=== PATIENT | female | born 1995 | race Two or more races ===

== ENCOUNTER 2017-03-12 04:21 | Emergency (ER) | payer OTHER ==
[2017-03-12] MEDS ORDERED: Sodium Chloride 0.9% 1,000 ML PRIMARY IV ONE (04:46)
[2017-03-12] MEDS ORDERED: NORMAL SALINE 10 ML SYRINGE FLUSH IVP PRN (04:46)
[2017-03-12 04:47] VITALS: TEMP 96
[2017-03-12] MEDS ORDERED: LORazepam 2 MG/1 ML VIAL IVP ONE (04:47)
[2017-03-12 05:02] LABS: VENOUS PH 7.51 (7.32-7.42)
[2017-03-12 05:07] LABS: BASOPHILS # (AUTO) 0.05 10*3/UL; BASOPHILS % (AUTO) 0.7 % (0-1); EOSINOPHILS # (AUTO) 0.17 10*3/UL; EOSINOPHILS % (AUTO) 2.4 % (0-8); HEMATOCRIT 36.6 % (37.0-47.0); HEMOGLOBIN 12.1 g/dL (12.0-16.0); LYMPHOCYTES # (AUTO) 2.28 10*3/uL; MEAN CORPUSCULAR HEMOGLOBIN 24.3 PG (27-31); MEAN CORPUSCULAR HGB CONC 33.1 g/dL (33-37); MEAN CORPUSCULAR VOLUME 73.6 FL (81-99); MEAN PLATELET VOLUME 10.8 FL (7.4-12.2); MONOCYTES # (AUTO) 0.54 10*3/UL (0.3-0.8); MONOCYTES % (AUTO) 7.7 % (5-15); NEUTROPHILS # (AUTO) 3.93 10*3/UL; NEUTROPHILS % (AUTO) 56.3 % (50-80); RED BLOOD COUNT 4.97 10^6/uL (4.20-5.40)
[2017-03-12 05:09] LABS: PLATELET MORPHOLOGY COMMENT NORMAL MORPHOLOGY (NORM); RBC MORPHOLOGY COMMENT NORMAL MORPHOLOGY (NORM); WBC MORPHOLOGY COMMENT NORMAL MORPHOLOGY (NORM)
[2017-03-12 05:15] LABS: BLOOD UREA NITROGEN 9 mg/dL (7-22); BUN/CREATININE RATIO 12.85 (6-20); EST GLOMERULAR FILTRATION > 60 (>60 ml/min/1.73m(2)); SERUM ALBUMIN 4.4 g/dL (3.5-4.8)
[2017-03-12 06:09] VITALS: RESP 16
--- NOTE | 2017-03-12 08:39 | PDOC ---
General Adult HPI - General Chief Complaint: General Medical Stated Complaint: arms,hands, face, tingling Date Seen by Provider: 03/12/17 Time Seen by Provider: 04:35 Source: POSITIVE: Patient, Other (Patient's boyfriend) Exam Limitations: POSITIVE: No limitations Nurse's Notes Reviewed & Considered: Yes - History of Present Illness Initial Comment: The patient is a 22-year-old female. She states that earlier this morning she developed numbness to her hands and face, she also has some numbness to her feet. Patient states she has a history of anxiety disorder and panic attacks. Patient developed her symptoms as she was trying to go to sleep. She denies any pain. No fevers or chills. No rashes or skin changes. No GI or symptoms. No focal neurologic symptoms. Have you received a tetanus shot in the past 10 years?: Unknown Body Location Affected: REPORTS: Upper Extremity (L), Upper Extremity (R), Lower Extremity (L), Lower Extremity (R), Face, Other (Numbness to hands feet and face) Timing: REPORTS: Gradual, Getting Worse Duration: 1-3 hours Severity: Moderate Quality: REPORTS: Other (No pain anywhere) Context: REPORTS: Other (Onset while trying to fall asleep) Modifying Factors: improves with: Nothing Similar Symptoms Previously: Yes Recent Care Received: REPORTS: Denies Any Prior Injuries Related to Current Complaint?: No - Patient Home Medications Home Medications: Home Medications NK [No Home Medications Reported] 03/12/17 - Patient Allergies Allergies/Adverse Reactions: Allergies Allergy/AdvReac Type Severity Reaction Status Date / Time potato AdvReac Intermediate HIVES Verified 03/12/17 04:33 tomato AdvReac Intermediate HIVES Verified 03/12/17 04:33 Past Medical History - heen HEENT History: Denies History Cardiovascular History: Other (please comment) Additional Cardiovasular History: TX FOR PERICARDITIS IN 2011 Respiratory History: Denies History Gastrointestinal History: Denies History Genitourinary History: Denies History Endocrine History: Denies History Musculoskeletal History: Denies History Prosthesis or Implant: No Neurological History: Denies History Blood Disorders: Denies History Psychiatric History: Other (please comment) Additional Psychiatric History: PT CLAIMS HAS HAD FREQ. PANIC ATTACKS X 2 YEARS History of Sexually Transmitted Diseases: No Female Reproductive History: Denies History LMP: 03/04/17 Obstetrical History: Denies History Cancer History: Denies History In Past Year Been Physically Harmed or Verbally Threatened: No History of MDRO: No History of Other Communicable Diseases: No Tobacco Use: Never Smoker Alcohol Use: None Substance Use Type: None Previous Surgical History: No Significant Family History: No pertinent family hx Past Medical History Reviewed: Reviewed - No Changes ROS - Limitations ROS Limitations: No Limitations Constitution: REPORTS: Denies Symptoms Cardiovascular: REPORTS: Denies Cardiac Symptoms Respiratory: REPORTS: Other (Sensation of breathlessness. Patient hyperventilating.) Neurological: REPORTS: Denies Neuro Symptoms Gastrointestinal: REPORTS: Denies GI Symptoms Endocrine: REPORTS: Denies Symptoms Musculoskeletal: REPORTS: Denies MS Symptoms Genitourinary: REPORTS: Denies Symptoms Eyes: REPORTS: Denies Symptoms ENT: REPORTS: Denies Symptoms Skin: REPORTS: Denies Skin Symptoms Lympathic: REPORTS: Denies Lympathic Symptoms Immunologic: POSITIVE: Denies Symptoms Psychiatric: POSITIVE: Anxiety General Adult Exam - General Appearance General Appearance: POSITIVE: Alert, Cooperative, No Acute Distress, No Evidence of Trauma, Anxious - HEENT HEENT: POSITIVE: Head Inspection Nml, Eyes Inspection Nml, Ears Inspection Nml, Nose Inspection Nml, Oral/Dental Inspect. Nml, Pharynx Inspect. Nml, PERRL, EOMI - Pupils Pupil Size: 3 mm: Bilateral (PERRLA) - Neck Neck: POSITIVE: Normal Inspection, Thyroid Normal - Respiratory Respiratory: POSITIVE: No Respiratory Distress, Breath Sounds Normal, Chest Non- Tender, Other (Hyperventilating) - Cardiovascular Cardiovascular: POSITIVE: Regular Rate & Rhythm, No Murmur, No Gallop, PMI Normal Peripheral Pulses: Radial (R): 2+, Radial (L): 2+ - Abdomen Abdomen: Soft: (All Quadrants), Normal Bowel Sounds: (All Quadrants), Denies Tenderness: (All Quadrants), No Splenomegaly: (All Quadrants), No Hepatomegaly: (All Quadrants), No Guarding: (All Quadrants), No Rebound: (All Quadrants), No Palpable Pulse: (All Quadrants), No Palpabale Mass: (All Quadrants), No Distention: (All Quadrants), No Rigidity: (All Quadrants) - Back Back: POSITIVE: Normal Inspection - Skin Skin: POSITIVE: Normal Color, Warm, Dry, No Rash - Extremities Extremity: Non-Tender: (All Extremities), Normal ROM: (All Extremities), Normal Inspection: (All Extremities) - Neurological / Psychological Neurological: POSITIVE: Oriented X3, records management specialist Normal As Tested, Motor Normal, Sensation Normal. NEGATIVE: Affect Apporpriate (Anxious) General Adult Progress - Results Reviewed by me Lab Results Reviewed: Yes (VBG shows respiratory alkalosis) Lab Results:: Laboratory Results 03/12/17 03/12/17 Range/Units 04:50 04:53 WBC 6.99 (4.8-10.8) 10^3/uL RBC 4.97 (4.20-5.40) 10^6/uL Hgb 12.1 (12.0-16.0) g/dL Hct 36.6 L (37.0-47.0) % MCV 73.6 L (81-99) FL MCH 24.3 L (27-31) PG MCHC 33.1 (33-37) g/dL RDW Std Deviation 41.1 (39-50) fL RDW Coeff of Last 15.5 H (11.5-14.5) % Plt Count 276 (140-350) 10*3/uL MPV 10.8 (7.4-12.2) FL Immature Gran % (Auto) 0.3 (0-5) % Neut % (Auto) 56.3 (50-80) % Lymph % (Auto) 32.6 (10-50) % [place] % (Auto) 7.7 (5-15) % Eos % (Auto) 2.4 (0-8) % Baso % (Auto) 0.7 (0-1) % Immature Gran # (Auto) 0.02 10*3/UL Neut # (Auto) 3.93 10*3/UL Lymph # (Auto) 2.28 10*3/uL [place] # (Auto) 0.54 (0.3-0.8) 10*3/UL Eos # (Auto) 0.17 10*3/UL Baso # (Auto) 0.05 10*3/UL WBC Morphology Comment Normal morphology (NORM) Plt Morphology Comment Normal morphology (NORM) RBC Morph Comment Normal morphology (NORM) VBG pH 7.51 H (7.32-7.42) VBG pCO2 26 L (45-55) mmHg VBG HCO3 20 L (22-26) mmol/L VBG Base Excess -3 L (-2-2) MMOL/L Sodium 139 (135-145) meq/L Potassium 3.0 L (3.8-5.2) meq/L Chloride 106 (98-112) meq/L Carbon Dioxide 21 L (23-33) meq/L Anion Gap 12 (5-20) BUN 9 (7-22) mg/dL Creatinine 0.7 (0.50-1.20) mg/dL Estimated GFR > 60 (>60 ml/min/1.73m(2)) BUN/Creatinine Ratio 12.85 (6-20) Glucose 98 (78-110) mg/dL Calculated Osmolality 286.0 (267-292) mOsm/kg Calcium 9.0 (8.7-10.7) mg/dL Total Bilirubin 0.6 (0.3-1.2) mg/dL AST 29 (8-39) IU/L ALT 28 (9-52) IU/L Alkaline Phosphatase 71 (38-126) IU/L Total Protein 7.7 (6.1-8.0) g/dL Albumin 4.4 (3.5-4.8) g/dL Globulin 3.3 (2.50-4.10) g/dL Albumin/Globulin Ratio 1.30 (1.3-2.0) mg/g Serum HCG, Qual Negative - Patient's Progress Pain Medication Addressed: POSITIVE: Not Applicable School/Work Release Addressed: POSITIVE: Not Applicable Re-Examine Time: 05:30 Re-Examine Comment: Patient medicated with Ativan, 2 mg IV. She rested comfortably shortly thereafter. Hyperventilation resolved. Patient asymptomatic on discharge. Status: POSITIVE: Improved, Re-Examined Antibiotics Given: No - Consult Counseled: POSITIVE: Patient, RE: Lab Results, RE: DX, RE: Need for F/U Patient Care Time - Estimated PCT Patient Care Time (In Minutes): 30 Vital Signs - Recent Vital Signs Vital Signs: Vital Signs (Last 8 hours) Temp Pulse Resp BP Pulse Ox 03/12/17 05:47 16 95 03/12/17 04:28 96.0 F L 87 18 123/83 100 - VS Reviewed Vital Signs Reviewed: Yes Discharge Clinical Impression: Anxiety attack, Hyperventilation Discharge Disposition: Discharged to Home Condition: Stable Patient Instructions Given at Discharge: Hyperventilation (ED), Anxiety (ED) Additional Instructions: The numbness you were experiencing in your face and hands were due to hyperventilation, which in turn was due to an anxiety or panic attack. I believe he will be fine. Should you have recurrence of these symptoms make a conscientious effort to slow your breathing down. Follow-up with your primary care provider. Return here as necessary. Follow Up With: NONE,NONE [Primary Care Provider] - (Instructions as above. Follow-up with your primary care provider. Return as necessary.)
== END 2017-03-12 05:47 | disposition home or self-care (01) ==
LOC: ER 04:21
DX: F41.9 Anxiety disorder, unspecified (principal); R06.4 Hyperventilation; R20.0 Anesthesia of skin
CPT/HCPCS: 36415; 80053; 82803; 84703; 85025; 96361; 96374; 99282; 99283; J2060; J7030